=== PATIENT | female | born 1995 | race Caucasian/White ===

== ENCOUNTER 2016-05-21 08:42 | Emergency (ER) | payer OTHER ==
[2016-05-21 09:08] VITALS: BP 112/62; PULSE 78; RESP 18; TEMP 98; O2SAT 97
--- NOTE | 2016-05-21 09:27 | UCPHY ---
H & P Time Seen by Provider: 05/21/16 09:20 Patient Type: New HPI/ROS: This patient presents with a chief complaint of a sore throat which began yesterday. She denies other symptoms including fever, malaise, myalgias, ear pain or cough. She has had minimal nasal congestion however. She said she was diagnosed with strep 1 month ago and that she gets frequently. REVIEW OF SYSTEMS: Constitutional: No fever, no malaise Eyes: No complaints ENT: Minimal nasal congestion, no ear pain, sore throat and pain with swallowing Respiratory: Denies cough, shortness of breath Cardiac: No chest pain Gastrointestinal: Not addressed Genitourinary: Not addressed Musculoskeletal: No myalgias including neck pain Skin: No rash Neurological: No headache Smoking Status: Never smoked Physical Exam: GENERAL: Well-appearing, well-nourished and in no acute distress. HEAD: Atraumatic, normocephalic. EYES: sclera anicteric, conjunctiva are normal. ENT: TMs normal, nares patent, the tonsils are swollen with the left greater than the right. There is exudate bilaterally NECK: Normal range of motion, supple there is a small tender node on the left or JVD. LUNGS: Breath sounds clear to auscultation bilaterally and equal. No wheezes rales or rhonchi. HEART: Regular rate and rhythm EXTREMITIES: Normal range of motion, NEUROLOGICAL: Cranial nerves II through XII grossly intact. Normal speech, normal gait. PSYCH: Normal mood, normal affect. SKIN: Warm, dry, normal turgor, no visible rashes or lesions. Constitutional: Initial Vital Signs Temperature (C) 36.6 C 05/21/16 09:06 Heart Rate 78 05/21/16 09:06 Respiratory Rate 18 05/21/16 09:06 Blood Pressure 112/62 05/21/16 09:06 O2 Sat (%) 97 05/21/16 09:06 O2 Delivery Mode Room Air Allergies/Adverse Reactions: No Known Allergies Allergy (Unverified 07/22/11 13:20) Home Medications: Medication Instructions Recorded Penicillin V Potassium [Pen Vk] 500 mg PO BID #20 tab 05/21/16 Medical Decision Making Differential Diagnosis: Based on the appearance of this patient's throat in her lack of other symptoms I believe she deserves an antibiotics in spite of the negative rapid strep screen. - Data Points Laboratory Results: 05/21/16 09:10 Group A Strep Screen Pending Departure - Departure Disposition: Home, Routine, Self-Care Clinical Impression: Pharyngitis Qualifiers: Pharyngitis/tonsillitis etiology: streptococcus Qualified Code(s): J02.0 - Streptococcal pharyngitis Condition: Good Instructions: Pharyngitis (ED) Additional Instructions: If your symptoms have not improved in 4 or 5 days or if they have not resolved in 7-10 days you should be re-evaluated. If you feel that your symptoms are worsening you should be seen sooner. Keep yourself well hydrated but do not force yourself to eat. Adult Pain & Fever Control: We recommend Acetaminophen (Tylenol) and Ibuprofen (Motrin, Advil) for pain and fever control. When fever is high or pain severe, both drugs can be used at the same time, but at different intervals. Please note the time differences. Your dose is: Acetaminophen [650]mg every 4 to 6 hours ibuprofen [600]mg every [6] hours with food OR naproxen Sodium (Aleve) [440]mg every 12 hours. Note: do not take Acetaminophen with Hydrocodone (Vicodin, Lortab) or Oxycodone (Percocet). These medications also contain Acetaminophen. No more than 3000 mg of Acetaminophen should be taken in 24 hours (for an adult) . The maximal dose of ibuprofen that it is safe in a 24-hour period is 2400 mg. You may take 400 mg every 4 hours, 600 mg every 6 hours or 800 mg every 8 hours safely. Referrals: NONE *PRIMARY CARE P,. [Primary Care Provider] - As per Instructions Prescriptions: Penicillin V Potassium [Pen Vk] 500 mg PO BID #20 tab - PQRS PQRS Measurement: Not applicable
[2016-05-21] MEDS ORDERED: IBUPROFEN 600 MG TAB PO ONE (09:39)
== END 2016-05-21 09:42 | disposition home or self-care (01) ==
LOC: CED 08:42
DX: J02.0 Streptococcal pharyngitis (principal)
CPT/HCPCS: 87880-PO; G0463-PO